=== PATIENT | male | born 1975 | race American Indian/Alaskan Native ===

== ENCOUNTER 2018-06-19 19:16 | Emergency (ER) | payer BC ==
--- NOTE | 2018-06-19 20:53 | XRay Report ---
FINAL REPORT PROCEDURE: XR ANKLE 3+V RT TECHNIQUE: RIGHT ankle radiographs, AP, lateral, and oblique views. CPT 71640 HISTORY: rt ankle injury COMPARISON: No prior studies are available for comparison. FINDINGS: Fracture (s) and/or Dislocation(s): A subtle linear lucencies identified through the anterior cortex of distal tibial metaphysis. There is also in irregular area of increased density involving the distal metaphyseal region.. Alignment: Normal. Joint space(s): Normal. Soft tissues: Mild degree soft tissue swelling is noted.. Bone mineralization: Mild degree osteophyte formation is noted involving the ankle joint. Foreign bodies: None. Calcaneal spurring: None. IMPRESSION: Soft tissue swelling Linear lucency involving the anterior cortex of the distal tibial metaphysis and the ill-defined area of sclerosis involving the distal tibia most likely represent a old fracture deformity. Clinical correlation is recommended. If patient is symptomatic involving the anterior distal tibial metaphysis and acute fracture may be suspected..
[2018-06-20] MEDS ORDERED: NORCO 7.5/325 PO ONE (02:45)
--- NOTE | 2018-06-20 02:47 | Emergency Department Report ---
ED Lower Extremity HPI - General Chief Complaint: Extremity Injury, Lower Stated Complaint: RIGHT ANKLE AND LEG PAIN Time Seen by Provider: 06/20/18 00:59 Source: patient Mode of arrival: Ambulatory Limitations: No Limitations - History of Present Illness Initial Comments: 43-year-old -[place] male comes in for right ankle pain sustained from running down steps on Thursday night approximate 1600. Patient reports of swelling has gotten worse. Patient's currently on crutches. Patient has a past medical history of hypertension ligament. Patient's currently on lisinopril 20 mg and hydrochlorothiazide at 12.5 mg 2 tabs daily. He is currently taking nifedipine 90 mg daily as well as hydralazine 50 mg twice a day. Patient is also on lisinopril 20 mg daily at bedtime for hypercholesterolemia. Patient is vitamin D deficient and take 1.25 mg by mouth of vitamin D. Complaint: ankle injury -: hour(s) (24) Injury: Ankle: Right Type of Injury: unknown Place: home Severity: moderate Severity scale (0 -10): 5 Improves With: nothing Worsens With: weight bearing, movement, palpation Context: running (downstairs) - Related Data Previous Rx's Medication Instructions Recorded Last Taken Type Ibuprofen [Motrin 800 MG tab] 800 mg PO Q8HR PRN #30 tablet 06/20/18 Unknown Rx Allergies Allergy/AdvReac Type Severity Reaction Status Date / Time No Known Allergies Allergy Verified 06/19/18 19:38 ED Review of Systems ROS: Stated complaint: RIGHT ANKLE AND LEG PAIN Other details as noted in HPI Comment: All other systems reviewed and negative Musculoskeletal: joint swelling (right ankle), arthralgia (right ankle) ED Past Medical Hx - Past Medical History Previous Medical History?: Yes Hx Hypertension: Yes - Social History Smoking Status: Never Smoker Substance Use Type: None - Medications Home Medications: Home Medications Medication Instructions Recorded Confirmed Last Taken Type Ibuprofen [Motrin 800 MG tab] 800 mg PO Q8HR PRN #30 tablet 06/20/18 Unknown Rx ED Physical Exam - General Limitations: No Limitations - Expanded Lower Extremity Exam Right Upper Leg exam: Present: normal inspection, full ROM Knee exam: Present: normal inspection, full ROM Ankle exam: Present: tenderness, swelling, erythema Foot/Toe exam: Present: full ROM, tenderness, swelling Neuro vascular tendon exam: Present: no vascular compromise. Absent: pulse deficit, abnormal cap refill Gait: Positive: unable to bear weight (using crutches) ED Course Vital Signs 06/19/18 06/19/18 19:25 19:38 Temperature 99.1 F 99.1 F Pulse Rate 102 H 93 H Respiratory 18 16 Rate Blood Pressure 155/93 155/93 O2 Sat by Pulse 95 96 Oximetry ED Lower Extremity MDM - Radiology Data Radiology results: report reviewed, image reviewed FINDINGS: Fracture (s) and/or Dislocation(s): A subtle linear lucencies identified through the anterior cortex of distal tibial metaphysis. There is also in irregular area of increased density involving the distal metaphyseal region.. Alignment: Normal. Joint space(s): Normal. Soft tissues: Mild degree soft tissue swelling is noted.. Bone mineralization: Mild degree osteophyte formation is noted involving the ankle joint. Foreign bodies: None. Calcaneal spurring: None. IMPRESSION: Soft tissue swelling Linear lucency involving the anterior cortex of the distal tibial metaphysis and the ill-defined area of sclerosis involving the distal tibia most likely represent a old fracture deformity. Clinical correlation is recommended. If patient is symptomatic involving the anterior distal tibial metaphysis and acute fracture may be suspected.. Transcribed By: [facility] Dictated By: FRANCISCO JAVIER ALONSO Electronically Authenticated By: FRANCISCO JAVIER ALONSO Signed Date/Time: 06/19/182045 DD/ 45 TD/TT: 06/19/182045 Critical care attestation.: If time is entered above; I have spent that time in minutes in the direct care of this critically ill patient, excluding procedure time. ED Disposition Clinical Impression: Right ankle injury Qualifiers: Encounter type: initial encounter Qualified Code(s): S99.911A - Unspecified injury of right ankle, initial encounter Disposition: DC-01 TO HOME OR SELFCARE Is pt being admited?: No Does the pt Need Aspirin: No Condition: Stable Additional Instructions: Please take pain medication as prescribed. There may be a possible fracture of severe ankle. Please wear splint as prescribed. Please continue using her crutches. It is very important for you to follow up with orthopedics I have listed their information below. Prescriptions: Ibuprofen [Motrin 800 MG tab] 800 mg PO Q8HR PRN #30 tablet PRN Reason: Pain , Severe (7-10) Referrals: PRIMARY CAREMD [Primary Care Provider] - 3-5 Days PERICO ALLEN MD [Staff Physician] - 3-5 Days Forms: Work/School Release Form(ED)
[2018-06-20 03:11] VITALS: BP 167/98
== END 2018-06-20 03:51 | disposition home or self-care (01) ==
LOC: ED 19:16
DX: S99.911A Unspecified injury of right ankle, initial encounter (principal); I10 Essential (primary) hypertension; X58.XXXA Exposure to other specified factors, initial encounter; Y93.89 Activity, other specified; Y92.89 Other specified places as the place of occurrence of the external cause; Y99.8 Other external cause status